=== PATIENT | male | born 1980 | race Caucasian/White ===

== ENCOUNTER 2017-04-09 02:24 | Emergency (ER) | payer OTHER, SELFPAY ==
[2017-04-09 03:24] LABS: #Lymphocytes 1.1 thou/uL (1.20-3.40); #Monocytes 1.5 thou/uL (0.11-0.59); #Neutrophils 11.6 thou/uL (1.40-6.50); %Eosinophils 0.2 % (0.0-10.0); %Monocytes 10.7 % (0.0-10.0); Hematocrit 43.2 % (42.0-52.0); Mean Platelet Volume 6.6 fL (7.4-10.4); Red Blood Cell (RBC) Count 4.66 mill/uL (4.70-6.10); White Blood Cell (WBC) Count 14.2 thou/uL (4.8-10.8)
[2017-04-09 03:41] LABS: Anion Gap 13 mmol/L (10-20); BUN (Urea Nitrogen) 11 mg/dL (8.9-20.6); Calc. Creatinine Clearance 0 mL/min (70-130); Calcium 9.1 mg/dL (7.8-10.44); Carbon Dioxide 25 mmol/L (22-29); Chloride 101 mmol/L (98-107); Estimated GFR-MDRD 85
[2017-04-09] MEDS ORDERED: Ketorolac Tromethamine 30 MG/ML VIAL ONE (04:48)
[2017-04-09] MEDS ORDERED: Dexamethasone 10 MG/ML VIAL ONE (04:48)
[2017-04-09] MEDS ORDERED: Bicillin LA 1.2 MILLION UNITS/2 ML SYRINGE ONE (05:06)
== END 2017-04-09 05:29 | disposition home or self-care (01) ==
LOC: ERS 02:24
DX: J02.0 Streptococcal pharyngitis (principal)
CPT/HCPCS: 80048; 85025; 93005; 96361; 96372; 96374; 96375; J0561; J1100; J1885